=== PATIENT | male | born 1930 | race Caucasian/White ===

== ENCOUNTER → 2017-12-21 | Outpatient (CLI) | payer MEDICARE ==
[~2017-12-21] MED LIST: ASPI-715 PO; ASPI-764 PO; ATOR40TA24 PO; CAR6.25 PO; CARV3.1255 PO; CEPH500T7 PO; CINN500C12 PO; CLOP75TA43 PO; DONE10TA64 PO; DULO30CA35 PO; FLUNR ENA; FLUT16SP20 NS; FURO-47 PO; GAB300 PO; GLIM1TAB25 PO; GLY5 PO; HCTZ25 PO; LEVO50TA86 PO; LISI-374 PO; LOR05 PO; LORA-630 PO; LORA-798 PO; MAGN250T25 PO; MAGN250T5 PO; MECL-111 PO; MECL12.5 PO; MECL25TA27 PO; METF-411 PO; METXR500 PO; NAP250 PO; OMEP40CA45 PO; OXYGEN INH; PANT20TA27 PO; PANT40TA65 PO; POTA-23 PO; POTA99TA13 PO; RANI-366 PO; SITA50TA6 PO; TAMS0.4C70 PO; TRAM-420 PO; [UNRECOGNIZED DRUG - CODE] PO
[2017-12-21 16:03] LABS: PLATELET COUNT, AUTOMATED 137 K/uL (150-450)
== END ==
LOC: LAB 15:39
PROVIDERS: ATTEND Family Medicine
DX: E78.5 Hyperlipidemia, unspecified (principal); I10 Essential (primary) hypertension; E03.9 Hypothyroidism, unspecified; E11.9 Type 2 diabetes mellitus without complications
CPT/HCPCS: 36415; 82040; 82247; 82310; 82374; 82435; 82465; 82565; 82947; 83036; 83718; 84075; 84132; 84155; 84295; 84443; 84450; 84460; 84478; 84520; 85025

== ENCOUNTER 2017-12-27 11:07 | Emergency (ER) | payer MEDICARE ==
--- NOTE | 2017-12-27 11:10 | ER Report ---
History and Physical Time Seen By MD: 11:09 HPI/ROS CHIEF COMPLAINT: Left lower extremity swelling and pain HISTORY OF PRESENT ILLNESS: Patient is an 87-year-old male here with complaints of left lower extremity swelling and pain. She reports having edema of the lower extremity for the past several months and coinciding erythema which has been improving until with the edema. Patient was seen by home health nursing and was sent into the emergency Department due to concern for worsening pain and swelling concerning for clots/DVT. Patient denies prior history of clotting. He is not currently being treated with antibiotic coverage for cellulitis of the lower extremity.. Patient is afebrile, normotensive, in no acute distress. Her vascular exam is intact of the distal extremity. REVIEW OF SYSTEMS: Respiratory: No cough, no dyspnea. Cardiovascular: No chest pain, no palpitations. Gastrointestinal: No vomiting, no abdominal pain. Musculoskeletal: No back pain. Extremity: + LLE pain, NV exam intact Allergies: Coded Allergies: grapefruit (Unverified Allergy, Unknown, NONE LISTED, 12/27/17) Home Meds Active Scripts Tramadol Hcl (TRAMADOL HCL) 50 Mg Tablet, 1-2 TAB PO Q6H Y for PAIN, #15 TAB Prov:ECHO SANABRIA MD 12/05/17 Reported Medications Levothyroxine Sodium (LEVOTHYROXINE SODIUM) 50 Mcg Tablet, 1 TAB PO QDAY 12/21/17 Pantoprazole Sodium (PANTOPRAZOLE SODIUM) 20 Mg Tablet.dr, 1 TAB PO QDAY 12/21/17 Meclizine Hcl (MECLIZINE HCL) 25 Mg Tab.chew, 1 TAB.CHEW PO BID 12/21/17 Tamsulosin Hcl (TAMSULOSIN HCL) 0.4 Mg Cap.er.24h, 1 CAP PO QDAY 12/05/17 Furosemide (FUROSEMIDE) 40 Mg Tablet, 1 TAB PO QDAY Take 1 full tab qam and .5 tab at noon if legs swollen. 12/05/17 Glimepiride (GLIMEPIRIDE) 1 Mg Tablet, 1 TAB PO QDAY 12/05/17 Magnesium Oxide (MAGNESIUM OXIDE) 250 Mg Tablet, 1 TAB PO QDAY 12/05/17 Carvedilol (CARVEDILOL) 6.25 Mg Tab, 0.5 TAB PO BID 12/05/17 Potassium Chloride (KLOR-CON 10) 10 Meq Tablet.er, 1 TAB PO QDAY 12/05/17 Guaifenesin (G-FENESIN) 400 Mg Tablet, 1 TAB PO QDAY 12/05/17 Clopidogrel Bisulfate (PLAVIX) 75 Mg Tablet, 1 TAB PO QAM TAKE ONE TABLET BY MOUTH EVERY DAY 09/28/13 Aspirin (ASPIRIN EC) 325 Mg Tablet.dr, 0.5 TAB PO QDAY 09/28/13 Oxygen (Oxygen) 2 L Inha, 2 L INH HS AND PRN 03/20/10 Gabapentin (Neurontin) 300 Mg Cap, 1 CAP PO TID 03/20/10 Donepezil Hcl (Aricept) 10 Mg Tablet, 1 TAB PO QHS 03/20/10 Atorvastatin Calcium (Lipitor) 40 Mg Tablet, 1 TAB PO QHS 03/20/10 Discontinued Reported Medications Pantoprazole Sodium (PANTOPRAZOLE SODIUM) 40 Mg Tablet.dr, 0.5 TAB PO QDAY, TAB.SR 12/05/17 Meclizine Hcl (MECLIZINE HCL) 12.5 Mg Tablet, 1 TAB PO BID 12/05/17 Past Medical/Surgical History Alzheimer's, myocardial infarction, hypertension, hyperlipidemia, esophageal reflux, arthritis, diabetes, Hx Smoking: No Smoking Status: Never Smoker Exposure to Second Hand Smoke?: No Hx Substance Use Disorder: No Hx Alcohol Use: No Constitutional Vital Sign - Last 24 Hours 12/27/17 12/27/17 12/27/17 12/27/17 11:10 11:18 11:22 11:30 Temp 97.4 Pulse 66 63 Resp 16 B/P (MAP) 149/86 144/68 (93) 129/74 (92) Pulse Ox 98 100 O2 Delivery Room Air 12/27/17 12/27/17 12/27/17 12/27/17 11:37 11:52 12:00 12:07 Pulse 54 57 52 B/P (MAP) 130/53 (78) Pulse Ox 100 89 98 12/27/17 12/27/17 12/27/17 12/27/17 12:22 12:27 12:30 12:42 Pulse 53 52 57 B/P (MAP) 139/56 (83) Pulse Ox 95 85 98 Physical Exam General Appearance: The patient is alert, has no immediate need for airway protection and no current signs of toxicity. Eyes: Pupils equal and round no injection. Respiratory: Chest is non tender, lungs are clear to auscultation. Cardiac: regular rate and rhythm Gastrointestinal: Abdomen is soft and non tender, no masses, bowel sounds normal. Musculoskeletal: Neck: Neck is supple and non tender. Extremities have full range of motion, + 2 + pitting edema of the LLE, sensation intact distal to the swelling Skin: No rashes or lesions. DIFFERENTIAL DIAGNOSIS: After history and physical exam differential diagnosis was considered for DVT, bursitis, cellulitis, CHF Medical Decision Making Data Points Result Diagram: 12/27/17 1120 12/27/17 1120 Laboratory Hematology Test 12/27/17 11:20 Red Blood Count 4.59 M/uL (4.00-5.60) Mean Corpuscular Volume 81.5 fL (80.0-96.0) Mean Corpuscular Hemoglobin 28.0 pg (26.0-33.0) Mean Corpuscular Hemoglobin Concent 34.4 g/dL (32.0-36.0) Red Cell Distribution Width 14.9 % (11.5-14.5) Mean Platelet Volume 7.3 fL (7.2-11.1) Neutrophils (%) (Auto) 55.1 % (39.4-72.5) Lymphocytes (%) (Auto) 26.9 % (17.6-49.6) Monocytes (%) (Auto) 10.8 % (4.1-12.4) Eosinophils (%) (Auto) 6.2 % (0.4-6.7) Basophils (%) (Auto) 1.0 % (0.3-1.4) Nucleated RBC Relative Count (auto) 0.1 /100WBC Neutrophils # (Auto) 2.7 K/uL (2.0-7.4) Lymphocytes # (Auto) 1.3 K/uL (1.3-3.6) Monocytes # (Auto) 0.5 K/uL (0.3-1.0) Eosinophils # (Auto) 0.3 K/uL (0.0-0.5) Basophils # (Auto) 0.0 K/uL (0.0-0.1) Nucleated RBC Absolute Count (auto) 0.01 K/uL Sodium Level 141 mmol/L (137-145) Potassium Level 3.7 mmol/L (3.5-5.0) Chloride Level 98 mmol/L (98-107) Carbon Dioxide Level 29 mmol/L (22-30) Blood Urea Nitrogen 29 mg/dl (9-21) Creatinine 1.60 mg/dl (0.66-1.25) Glomerular Filtration Rate Calc 41.0 Random Glucose 82 mg/dl (75-110) Calcium Level 9.4 mg/dl (8.4-10.2) Total Bilirubin 0.7 mg/dl (0.2-1.3) Aspartate Amino Transf (AST/SGOT) 25 U/L (0-35) Alanine Aminotransferase (ALT/SGPT) 13 U/L (0-56) Alkaline Phosphatase 95 U/L (0-126) B-Type Natriuretic Peptide 55 pg/ml (0-100) Total Protein 7.6 gm/dl (6.3-8.2) Albumin 4.0 g/dl (3.5-5.0) Chemistry Test 12/27/17 11:20 White Blood Count 4.9 k/uL (4.5-11.0) Red Blood Count 4.59 M/uL (4.00-5.60) Hemoglobin 12.9 g/dL (14.0-18.0) Hematocrit 37.4 % (42.0-52.0) Mean Corpuscular Volume 81.5 fL (80.0-96.0) Mean Corpuscular Hemoglobin 28.0 pg (26.0-33.0) Mean Corpuscular Hemoglobin Concent 34.4 g/dL (32.0-36.0) Red Cell Distribution Width 14.9 % (11.5-14.5) Platelet Count 181 K/uL (150-450) Mean Platelet Volume 7.3 fL (7.2-11.1) Neutrophils (%) (Auto) 55.1 % (39.4-72.5) Lymphocytes (%) (Auto) 26.9 % (17.6-49.6) Monocytes (%) (Auto) 10.8 % (4.1-12.4) Eosinophils (%) (Auto) 6.2 % (0.4-6.7) Basophils (%) (Auto) 1.0 % (0.3-1.4) Nucleated RBC Relative Count (auto) 0.1 /100WBC Neutrophils # (Auto) 2.7 K/uL (2.0-7.4) Lymphocytes # (Auto) 1.3 K/uL (1.3-3.6) Monocytes # (Auto) 0.5 K/uL (0.3-1.0) Eosinophils # (Auto) 0.3 K/uL (0.0-0.5) Basophils # (Auto) 0.0 K/uL (0.0-0.1) Nucleated RBC Absolute Count (auto) 0.01 K/uL Glomerular Filtration Rate Calc 41.0 Calcium Level 9.4 mg/dl (8.4-10.2) Total Bilirubin 0.7 mg/dl (0.2-1.3) Aspartate Amino Transf (AST/SGOT) 25 U/L (0-35) Alanine Aminotransferase (ALT/SGPT) 13 U/L (0-56) Alkaline Phosphatase 95 U/L (0-126) B-Type Natriuretic Peptide 55 pg/ml (0-100) Total Protein 7.6 gm/dl (6.3-8.2) Albumin 4.0 g/dl (3.5-5.0) ED Course/Re-evaluation ED Course Patient is an 87-year-old male here with complaints of left lower extremity edema just been improving over the past several months as well as erythema which has also been improving. He was sent in today due to concern for DVT as the left lower extremity is more swollen than the right and tender to palpation.. Neurovascular exam is intact at time of evaluation. Duplex imaging of the left lower extremity showed no acute clots. Dr. Sanabria visited the patient while in the ED and has a follow up appointment scheduled. Patient was stable at time of discharge. Decision to Disposition Date: December 27, 2017 Decision to Disposition Time: 12:55 Depart Departure Latest Vital Signs Vital Signs Date Time Temp Pulse Resp B/P (MAP) Pulse Ox O2 Delivery O2 Flow Rate FiO2 12/27/17 12:42 57 98 12/27/17 12:30 139/56 (83) 12/27/17 11:10 97.4 16 Room Air Impression: Primary Impression: Extremity edema Additional Impression: Extremity pain Condition: Improved Disposition: HOME OR SELF-CARE Referrals: ECHO SANABRIA MD (PCP) Patient Instructions: Leg Edema (ED) Additional Instructions: Please follow-up with your family doctor in the next week. Please rest, ice, elevated and use NSAIDs for your lower extremity pain. Problem Qualifiers AYDIN JACOBS DO December 27, 2017 11:10
[2017-12-27 11:32] LABS: PLATELET COUNT, AUTOMATED 181 K/uL (150-450)
--- NOTE | 2017-12-27 12:24 | RADIOLOGY IMAGING REPORT ---
FACILITY: [facility] [place]IENT NAME: Guilherme Antonio : 1930 MR: [id number] V: [id number] EXAM DATE: ORDERING PHYSICIAN: AYDIN JACOBS TECHNOLOGIST: Location: [facility] - [place] Patient: Guilherme Antonio : 1930 Visit/Account:[id number] Date of Sevice: 12/27/2017 Bilateral lower extremity duplex venous ultrasound Indication: Leg swelling Comparison: None Available Findings: Duplex Doppler and color flow imaging was performed. The bilateral common femoral, femoral , and popliteal veins are all patent and compressible with normal Doppler wave forms. There are norm al responses to augmentation. The proximal greater saphenous veins are also normal. Impression: 1. No evidence of deep venous thrombosis of the bilateral lower extremities. Report Dictated By: Fernando Sanchez DO at 12/27/2017 12:18 PM Report E-Signed By: Fernando Sanchez DO at 12/27/2017 12:20 PM [id number]
[2017-12-27 12:30] VITALS: BP 139/56
== END 2017-12-27 12:55 | disposition home or self-care (01) ==
LOC: ER 11:21
DX: R60.0 Localized edema (principal); M79.605 Pain in left leg
CPT/HCPCS: 82040; 82247; 82310; 82374; 82435; 82565; 82947; 83880; 84075; 84132; 84155; 84295; 84450; 84460; 84520; 85025; 99284

== ENCOUNTER → 2018-02-27 | Outpatient (CLI) | payer MEDICARE ==
[~2018-02-27] MED LIST changes: +ACET500T68 PO; +GLIP-152 PO
[2018-02-27 10:32] LABS: PLATELET COUNT, AUTOMATED 127 K/uL (150-450)
== END ==
LOC: LAB 10:14
PROVIDERS: ATTEND Internal Medicine Nephrology
DX: I12.9 Hypertensive chronic kidney disease with stage 1 through stage 4 chronic kidney disease, or unspecified chronic kidney disease (principal); N18.3 Chronic kidney disease, stage 3 (moderate)
CPT/HCPCS: 36415; 82040; 82310; 82374; 82435; 82565; 82570; 82947; 84100; 84132; 84156; 84295; 84520; 84550; 85025

== ENCOUNTER → 2018-03-27 | Outpatient (CLI) | payer MEDICARE ==
[~2018-03-27] MED LIST changes: +FLUT16SP19 NS
[2018-03-27 15:38] LABS: PLATELET COUNT, AUTOMATED 166 K/uL (150-450)
== END ==
LOC: LAB 15:04
PROVIDERS: ATTEND Family Medicine
DX: E11.9 Type 2 diabetes mellitus without complications (principal)
CPT/HCPCS: 36415; 82040; 82247; 82310; 82374; 82435; 82565; 82947; 83036; 84075; 84132; 84155; 84295; 84450; 84460; 84520; 85025

== ENCOUNTER → 2018-08-28 | Outpatient (CLI) | payer MEDICARE ==
[~2018-08-28] MED LIST changes: -METF-411 PO; +METF-450 PO
[2018-08-28 15:04] LABS: PLATELET COUNT, AUTOMATED 149 K/uL (150-450)
== END ==
LOC: LAB 14:45
PROVIDERS: ATTEND Family Medicine
DX: N18.9 Chronic kidney disease, unspecified (principal); E11.9 Type 2 diabetes mellitus without complications; E03.9 Hypothyroidism, unspecified
CPT/HCPCS: 36415; 82310; 82374; 82435; 82565; 82947; 83036; 84132; 84295; 84443; 84520; 85025

== ENCOUNTER → 2018-11-20 | Outpatient (CLI) | payer MEDICARE ==
[2018-11-20 14:03] LABS: PLATELET COUNT, AUTOMATED 117 K/uL (150-450)
== END ==
LOC: LAB 13:46
PROVIDERS: ATTEND Family Medicine
DX: N18.9 Chronic kidney disease, unspecified (principal); E11.9 Type 2 diabetes mellitus without complications; I25.10 Atherosclerotic heart disease of native coronary artery without angina pectoris
CPT/HCPCS: 36415; 82040; 82247; 82310; 82374; 82435; 82465; 82565; 82947; 83036; 83718; 84075; 84132; 84155; 84295; 84450; 84460; 84478; 84520; 85025

== ENCOUNTER → 2018-12-15 | Outpatient (CLI) | payer MEDICARE | LOC: US 01:29 | PROVIDERS: ATTEND Internal Medicine Cardiovascular Disease | DX: I50.22 Chronic systolic (congestive) heart failure (principal); I25.10 Atherosclerotic heart disease of native coronary artery without angina pectoris | CPT/HCPCS: 93306 ==

== ENCOUNTER → 2019-02-19 | Outpatient (CLI) | payer MEDICARE ==
[~2019-02-19] MED LIST changes: +ASPI-1471 PO; -RANI-366 PO; +RANI-54 PO
[2019-02-19 15:14] LABS: PLATELET COUNT, AUTOMATED 141 K/uL (150-450)
== END ==
LOC: LAB 15:02
PROVIDERS: ATTEND Family Medicine
DX: E03.9 Hypothyroidism, unspecified (principal); E11.9 Type 2 diabetes mellitus without complications; I10 Essential (primary) hypertension
CPT/HCPCS: 36415; 82040; 82247; 82310; 82374; 82435; 82565; 82947; 83036; 84075; 84132; 84155; 84295; 84443; 84450; 84460; 84520; 85025